=== PATIENT | female | born 1975 | race Caucasian/White ===

== ENCOUNTER 2017-02-06 17:37 | Observation (INO) | payer OTHER ==
[~2017-02-06] VITALS: Ht 157.5 cm; Wt 52.6 kg
[~2017-02-06 17:37] MED LIST: AMITRIPTYLINE H50 M1 PO; DEPLIN15 MG; DIHYDROERGO1 MG/1 ML SQ; DILAUDID 44 MG/1 ML IM; ESTROVEN MAX200 MCG PO; FIORICET,ESG1 TABLET PO; FLEXERIL10 MG PO; INDOCIN50 MG PO; INOSITOL650 MG PO; KLONOPIN0.5 M1 PO; KLONOPIN2 MG PO; MAGNESIUM500 MG; MICRONOR0.35 MG; MICRONOR0.35 MG PO; NUCYNTA50 MG; PHENERGAN12.5 M1 PO; PREDNISONE20 MG PO; TORADOL10 MG PO; VICODIN 5-3001 EACH; VITAMIN D2000 UNIT; ZOFRAN4 MG PO; ZOFRAN8 M1 PO
[2017-02-06 18:50] LABS: CREATININE 0.6 mg/dL (0.6-1.3); POTASSIUM 3.6 mEq/L (3.7-5.4)
[2017-02-06 18:57] LABS: HEMATOCRIT 40.4 % (36.0-46.0); MCH 32.2 PG (29.0-34.0); MCHC 35.9 G/DL (30.0-36.0); MCV 89.6 FL (83-99); MEAN PLAT.VOLUME 10.1 uM^3 (9.5-12.4); PLATELET COUNT 204 K/uL (156-360); RBC DIS.WIDTH-CV 12.3 % (11.8-14.6); RBC DIS.WIDTH-SD 40.1 % (39-53); RED BLOOD COUNT 4.51 M/uL (3.80-5.20); WHITE BLOOD COUNT 8.6 K/uL (4.1-10.2)
[2017-02-06 19:16] LABS: CHLORIDE 105 mEq/L (99-109); POTASSIUM 3.8 mEq/L (3.7-5.4)
[2017-02-06 19:17] LABS: SODIUM 136 mEq/L (136-147)
[2017-02-06 19:18] LABS: GLUCOSE 90 mg/dL (70-99)
[2017-02-06 19:20] LABS: ANION GAP 14 MEQ/L (2-14)
[2017-02-06 19:22] LABS: GFR ESTIMATE (CALCULATED) > 59 mL/min/
[2017-02-06 19:23] LABS: UREA NITROGEN (BUN) 10 mg/dL (9-23)
[2017-02-06 19:26] LABS: TROP-I INTERPRETATION NEGATIVE; TROPONIN-I < 0.01 ng/mL (0.0-0.30)
[2017-02-06] MEDS ORDERED: INDOCIN25 MG PO (22:28)
[2017-02-06] MEDS ORDERED: ZOFRAN8 MG PO (22:28)
[2017-02-06] MEDS ORDERED: AUGMENTIN875 MG PO (22:29)
[2017-02-06] MEDS ORDERED: HYOSCYAMINE0.125 M1 SL (22:29)
[2017-02-06] MEDS ORDERED: PROAIR HFA8.5 GM IH (22:30)
[2017-02-06] MEDS ORDERED: BENZONATATE200 MG PO (22:30)
[2017-02-06] MEDS ORDERED: CANDESARTAN CILE8 MG PO (22:30)
[2017-02-06 23:14] VITALS: BP 106/59
[2017-02-07 02:20] LABS: TROP-I INTERPRETATION NEGATIVE; TROPONIN-I < 0.01 ng/mL (0.0-0.30)
[2017-02-07 04:00] VITALS: BP 86/57
[2017-02-07 08:50] VITALS: BP 88/54
[2017-02-07 09:30] LABS: HEMATOCRIT 37.3 % (36.0-46.0); MCH 32.3 PG (29.0-34.0); MCHC 35.7 G/DL (30.0-36.0); MCV 90.5 FL (83-99); MEAN PLAT.VOLUME 11.2 uM^3 (9.5-12.4); PLATELET COUNT 163 K/uL (156-360); RBC DIS.WIDTH-CV 12.4 % (11.8-14.6); RBC DIS.WIDTH-SD 40.7 % (39-53); RED BLOOD COUNT 4.12 M/uL (3.80-5.20); WHITE BLOOD COUNT 5.1 K/uL (4.1-10.2)
[2017-02-07 09:34] LABS: CHLORIDE 113 mEq/L (99-109); GLUCOSE 67 mg/dL (70-99); POTASSIUM 4.1 mEq/L (3.7-5.4); SODIUM 139 mEq/L (136-147)
[2017-02-07 09:35] LABS: ANION GAP 8 MEQ/L (2-14)
[2017-02-07 09:37] LABS: ALKALINE PHOSPHATASE 60 IU/L (3-129); GFR ESTIMATE (CALCULATED) > 59 mL/min/; TOTAL BILIRUBIN 0.8 mg/dL (0.0-1.0)
[2017-02-07 09:40] LABS: UREA NITROGEN (BUN) 8 mg/dL (9-23)
[2017-02-07 09:41] LABS: TROP-I INTERPRETATION NEGATIVE; TROPONIN-I < 0.01 ng/mL (0.0-0.30)
[2017-02-07] MEDS ORDERED: RELAFEN500 M1 PO ×2 (09:54→09:55)
== END 2017-02-07 11:50 | disposition home or self-care (01) ==
LOC: EME 17:37 → 5WEST 21:04 → EDOF 21:04 → 5WEST 22:55
PROVIDERS: Emergency Medicine; Internal Medicine
DX: R07.81 Pleurodynia (principal); G43.909 Migraine, unspecified, not intractable, without status migrainosus; Q23.1 Congenital insufficiency of aortic valve; I71.2 Thoracic aortic aneurysm, without rupture; F41.9 Anxiety disorder, unspecified
CPT/HCPCS: 71010; 71275; 74177; 80047; 80048; 80053; 81003; 84484; 85027; 93005; 99281; 99285; G0378; J1644; J2270; J2405; J2765; J7030; J7050